=== PATIENT | male | born 1965 | race Two or more races ===

== ENCOUNTER 2019-01-20 11:04 | Emergency (ER) | payer OTHER ==
[~2019-01-20] VITALS: Ht 172.7 cm; Wt 83.0 kg
[2019-01-20] MEDS ORDERED: VASOTEC20 M1 (12:34)
== END 2019-01-20 18:23 | disposition home or self-care (01) ==
LOC: ER 11:04
DX: K52.9 Noninfective gastroenteritis and colitis, unspecified (principal)

== ENCOUNTER 2019-08-06 10:50 | Emergency (ER) | payer OTHER ==
[~2019-08-06] VITALS: Ht 172.7 cm; Wt 83.9 kg
[~2019-08-06 10:50] MED LIST: VASOTEC20 M1
[2019-08-06] MEDS ORDERED: LEVAQUIN500 MG PO (12:43)
== END 2019-08-06 12:51 | disposition home or self-care (01) ==
LOC: ER 10:50
DX: S61.221A Laceration with foreign body of left index finger without damage to nail, initial encounter (principal); W26.0XXA Contact with knife, initial encounter; Y93.G1 Activity, food preparation and clean up; Y92.018 Other place in single-family (private) house as the place of occurrence of the external cause; Y99.8 Other external cause status

== ENCOUNTER 2019-10-06 14:38 | Emergency (ER) | payer OTHER ==
[~2019-10-06] VITALS: Ht 172.7 cm; Wt 83.9 kg
[~2019-10-06 14:38] MED LIST changes: +LEVAQUIN500 MG PO
== END 2019-10-06 18:45 | disposition home or self-care (01) ==
LOC: ER 14:38
DX: J11.1 Influenza due to unidentified influenza virus with other respiratory manifestations (principal)

== ENCOUNTER 2020-11-24 08:46 | Outpatient (CLI) | payer OTHER | END 2020-11-24 09:40 | disposition home or self-care (01) | LOC: OFIC 805 08:46 | PROVIDERS: ATTEND Otolaryngology Otology & Neurotology | DX: R04.0 Epistaxis (principal) ==

== ENCOUNTER 2024-06-25 11:46 | Emergency (ER) | payer OTHER ==
[~2024-06-25] VITALS: Ht 172.7 cm; Wt 83.9 kg
[2024-06-25] MEDS ORDERED: CLONIDINE HCL 0.1 MG TABLET PO STA (13:14)
[2024-06-25] MEDS ORDERED: KETOROLAC TROMETHAMINE 30 MG VIAL IM STA (14:49)
[2024-06-25] MEDS ORDERED: ORPHENADRINE CITRATE 30 MG/ML AMPUL IM STA (14:49)
== END 2024-06-25 16:30 | disposition home or self-care (01) ==
LOC: ER 11:48
DX: I10 Essential (primary) hypertension (principal); R51.9 Headache, unspecified